=== PATIENT | male | born 1970 | race Asian ===

== ENCOUNTER 2023-02-23 11:23 | Outpatient (REF) | payer OTHER, SELFPAY ==
--- NOTE | ~2023-02-23 | XR_ITS ---
EXAMINATION: XR HAND, RIGHT CLINICAL INFORMATION: Pain. COMPARISON: None available. TECHNIQUE: PA, lateral, and oblique views of the right hand. FINDINGS: The bones and soft tissues are normal. No fracture. Alignment is anatomic. Joint spaces are maintained. No erosions or soft tissue calcifications. XR/XR hand RT min 3V IMPRESSION: Unremarkable right hand exam.
== END 2023-02-23 11:24 | disposition home or self-care (01) ==
LOC: HO.HOSX 11:23
PROVIDERS: Visit Provider Physician Assistant
DX: M77.11 Lateral epicondylitis, right elbow (principal)
CPT/HCPCS: 20550; 73130; J1020

== ENCOUNTER 2023-02-23 12:04 | Outpatient (AMB) | payer OTHER, SELFPAY ==
--- NOTE | 2023-02-23 12:15 | A.OFFVIS_ITS ---
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 Patient reports ongoing pain from shoveling back in September. Pain starts from his elbow down to the base of the right thumb. Denies numbness and tingling. Allergies No Known Allergies Allergy (Verified 02/23/23 12:19) HPI MEDICAL OFFICE SPECIALIST-Pain in Right hand/right trigger thumb HPI Details 52-year-old right hand dominant male who presents in the office today, as a new patient, for an evaluation of right hand pain. The patient claims his pain began around 09/2022 status post shoveling. He reports his pain starts in his elbow and radiates to the back of his right thumb. He denies numbness or tingling. [facility] Medical History (Updated 02/23/23 @ 12:46 by Minoo Reese) History of high blood pressure History of high cholesterol Social History (Updated 02/23/23 @ 12:20 by Richelle Fu) Alcohol intake: never Patient Tobacco Use Status: Never used Tobacco Current occupational status: employed Current occupation: IT/ right hand dominant Review of Systems Const All systems reviewed & are unremarkable except as noted in HPI and below Physical Exam Vital Signs: BMI result Body Mass Index 26.3 Const General: cooperative, healthy appearing, comfortable, no acute distress, well developed and alert Orientation/consciousness: patient oriented x3 HEENT Head: Yes normal to inspection, Yes normocephalic and Yes atraumatic Eyes General: appearance normal, both eyes and all related structures Resp Effort & Inspection: normal respiratory effort and able to speak in complete sentences Cardio Rate: regular rate Peripheral pulses: Peripheral pulses 2+ throughout GI Palpation (GI): Soft to palpation Skin Lesions: no lesions Rashes: no rashes Neuro General: patient oriented x3 Extrem Other: Right elbow: Tenderness to palpation lateral epicondyle. No tenderness to pal pation medial epicondyle or olecranon. Full ROM. Pain is not reproduceable against resisted wrist extension. NVI. Office Procedures Joint Injection/Drain Joint Injection/Drain Primary Site: right tennis elbow Prep: site was prepped using aseptic technique, ethochloride spray was applied and injection warnings given Injected: 40 mg of, DepoMedrol, with 1 mL of (2% plain lido) and other (lateral epicondyle ) Procedure: The patient tolerated the procedure well, but had some pain with the injection and there was some relief with the local anesthesia Coding 67886 - Epicondyle Procedure code (CPT) selection complete Results Reviewed Results Reviewed: 02/23/23 12:38 Lidocaine HCl 1 % [Xylocaine 1 %] 2 ml .ROUTE .STK-MED ONE methylPREDNISolone acetate [DEPO-MedroL] 40 mg .ROUTE .STK-MED ONE Assessment & Plan Assessment & Plan (1) Right tennis elbow: Code(s): M77.11 - Lateral epicondylitis, right elbow Plan Mr. Taylor is a 52-year-old right hand dominant male who presents in the office today, as a new patient, for an evaluation of right hand pain. The patient claims his pain began around 09/2022 status post shoveling. He reports his pain starts in his elbow and radiates to the back of his right thumb. He denies numbness or tingling. The patient was offered a cortisone injection in the right elbow with 40 mg of DepoMedrol. The patient was explained the risk, benefits, and alternatives to receiving this injection. After receiving consent for the injection, the patient had the procedure done while in office today. The patient tolerated the pr ocedure well with no complications. We recommended a counter force brace. He will obtained the counter force brace on his own. Follow up will be PRN, or sooner if needed. X-rays of the right hand which were obtained while in the office today and were reviewed by me, Henna Lobato PA-C, revealed no acute fractures or dislocation. Orders: Orders XR hand RT min 3V 02/23/23 M79.643 - Pain in unspecified hand Patient Instructions: Scribed for Henna Lobato PA-C by Minoo Reese certified ophthalmic medical technician, on 02/23/2023 at 12:20 pm, EST. Your attestation Coding Level of Care Code New Pt Level 4 (12081) Diagnoses Right tennis elbow M77.11 CPT Codes Coding - Joint 2: 67738 - Epicondyle ([id number])
[2023-02-23 12:22] VITALS: BMI 26.3
== END 2023-02-23 13:22 | disposition home or self-care (01) ==
PROVIDERS: Visit Provider Physician Assistant
DX: M77.11 Lateral epicondylitis, right elbow (principal)
CPT/HCPCS: 20550; 99204

== ENCOUNTER 2023-08-29 07:30 | Day surgery (SDC) | payer OTHER, SELFPAY ==
--- NOTE | 2023-08-27 14:12 | P.CONAN_ITS ---
Documented by User: Rufina Thomas NP 08/27/23 14:12 HPI - Anesthesia Eval Consult details Narrative: 53yo M for Colonoscopy [facility] Active Problems Active Problems: All Active Problems (Updated 02/23/23 @ 12:46 by Minoo Reese) Right tennis elbow (Acute) Past Medical History Medical History Elevated cholesterol HTN (hypertension) Surgical History Surgical History History of incision and drainage Social History Social History Alcohol intake: never Patient Tobacco Use Status: Never used Tobacco Advance Directives: No Advance Directives Information Provided: Yes Current occupational status: employed Current occupation: IT/ right hand dominant Meds Allergies Allergy/AdvReac Type Severity Reaction Status Date / Time No Known Allergies Allergy Verified 02/23/23 12:19 Home Medications Medication Instructions Recorded Confirmed Last Taken Type atorvastatin 20 mg tablet 20 mg PO DAILY 02/23/23 08/27/23 Unknown History losartan 50 mg tablet 50 mg PO DAILY 02/23/23 08/29/23 08/29/23 07:00 History Assessment and Plan Assessment Anesthesia Assessment: Chart Reviewed Documented by User: Oksana Hansen MD 08/29/23 07:55 [facility] Past Medical History Medical History Elevated cholesterol HTN (hypertension) Surgical History Surgical History History of incision and drainage History of Problems with Anesthesia: No Social History Social History Alcohol intake: never Patient Tobacco Use Status: Never used Tobacco Advance Directives: No Advance Directives Information Provided: Yes Current occupational status: employed Current occupation: IT/ right hand dominant Meds Allergies Allergy/AdvReac Type Severity Reaction Status Date / Time No Known Allergies Allergy Verified 02/23/23 12:19 Home Medications Medication Instructions Recorded Confirmed Last Taken Type atorvastatin 20 mg tablet 20 mg PO DAILY 02/23/23 08/27/23 Unknown History losartan 50 mg tablet 50 mg PO DAILY 02/23/23 08/29/23 08/29/23 07:00 History Exam Airway Mallampati Class: II TM Dist: >3cm Neck ROM: Full Loose/Missing/Broken Teeth: No Heart: RRR Lungs: CTA Assessment and Plan Assessment Anesthesia Assessment: Anesthesia Plan Discussed Final Anesthetic Review History of Problems with Anesthesia: No NPO: Yes ASA Class: II Final Preanesthetic Review: Meds/Allgs Chart Reviewed, Consent Obtained/Reviewed and Anes Risks/Benef Reviewed Patient Risk: Low Procedure Risk: Low Anesthetic Plan Anesthetic Plan: MAC: Disposition: Standard PACU
[2023-08-27 14:25] VITALS: BMI 26.6
[2023-08-29 07:46] VITALS: BMI 26.5
[2023-08-29 07:51] VITALS: BMI 26.5
[2023-08-29 08:06] VITALS: BP 106/74; PULSE 72; RESP 16; TEMP 36.3; O2SAT 98
[2023-08-29] MEDS: Lactated Ringers 1,000 ML 100 ML IVCONT (08:16)
--- NOTE | 2023-08-29 09:37 | P.BOP_ITS ---
Brief Operative Note Date of Service: 08/29/23 Pre-op diagnosis: Screening Post-op diagnosis: other (Polyp) Procedure: Colonoscopy to the cecum and TI with bx/removal of polyp Surgeon: William Rizo MD Anesthesia: MAC Was an Supervisor Malted Milk used for this Procedure?: No Estimated blood loss (mL): 2.0 Pathology: other (A. Polyp at 20cm) Condition: stable Disposition: PACU
[2023-08-29 09:39] VITALS: BP 79/49; PULSE 67; RESP 20; TEMP 36.1; O2SAT 96
[2023-08-29 09:43] VITALS: BP 88/53; PULSE 64; RESP 20; O2SAT 96
[2023-08-29 09:54] VITALS: BP 93/56; PULSE 60; RESP 20; O2SAT 97
[2023-08-29 10:01] VITALS: BP 115/67; PULSE 61; RESP 18; TEMP 36.1; O2SAT 100
--- NOTE | 2023-08-29 10:38 | OP_ITS ---
DATE OF SERVICE: 08/29/2023 SURGEON: William Rizo MD INDICATIONS: The patient is a 53-year-old male presenting for evaluation of colorectal cancer screening. Full consent has been obtained from him for this, including risks of bleeding and perforation. PREOPERATIVE DIAGNOSIS: Colorectal cancer screening. POSTOPERATIVE DIAGNOSIS: Colorectal cancer screening, small colon polyp, diverticulosis, and internal hemorrhoids. PROCEDURE PERFORMED: Colonoscopy to the cecum and terminal ileum with biopsy and removal of polyp. ESTIMATED BLOOD LOSS: COMPLICATIONS: ANESTHESIA: Monitored anesthesia care. ASSISTANTS: SPECIMENS: DESCRIPTION OF PROCEDURE: The patient was placed in the left lateral decubitus position. The digital rectal exam revealed no abnormalities. The Olympus video pediatric colonoscope was entered into the rectum and advanced easily to the cecum. Once in the cecum, I did identify normal-appearing cecal pouch with appendiceal orifice and a normal-appearing ileocecal valve. The terminal ileum was cannulated and appeared normal. The scope was withdrawn back in the colon. The entire cecum and ileocecal valve appeared normal. The scope was slowly withdrawn assessing all mucosal surfaces carefully. Preparation was excellent. At 20 cm was a flat, approximately 5 mm probable hyperplastic polyp, which was biopsied and completely removed with a cold biopsy forceps. I did not visualize any other polyps, colitis, nor angiodysplasia. There was a mild amount of sigmoid diverticulosis. In the rectum, scope was retroflexed visualizing internal hemorrhoids but no other pathology. The rectal mucosa appeared normal. The scope was straightened and withdrawn from the patient. He tolerated the procedure well and was returned to the recovery area in stable condition. IMPRESSION: 1. Small colon polyp. 2. Mild diverticulosis. 3. Small internal hemorrhoids. PLAN: The results of the pathology will be checked. If this happens to be a tubular adenoma, I would recommend a followup coloscopy in 5 years. If it is only hyperplastic, I would recommend a followup coloscopy in 10 years. He will otherwise see me on a p.r.n. basis. MD MICHEL Guzman/SULTANA / [id number] MTDD
== END 2023-08-29 10:31 | disposition home or self-care (01) ==
PROVIDERS: PCP Internal Medicine; Visit Provider Internal Medicine
PROC: 0DJD8ZZ Inspection of Lower Intestinal Tract, Via Natural or Artificial Opening Endoscopic (ICD-10-PCS; CPT 45378; principal; 2023-08-29 08:30)
DX: Z12.11 Encounter for screening for malignant neoplasm of colon (principal); K63.5 Polyp of colon; K57.30 Diverticulosis of large intestine without perforation or abscess without bleeding; K64.8 Other hemorrhoids; I10 Essential (primary) hypertension
CPT/HCPCS: 45380; 88305; J2371; J2704